=== PATIENT | female | born 1980 | race Caucasian/White ===

== ENCOUNTER 2016-03-09 07:10 | Emergency (ER) | payer OTHER ==
[~2016-03-09] VITALS: Ht 160 cm; Wt 45.0 kg
[2016-03-09 07:15] VITALS: Ht 160 cm; Wt 45.0 kg
[2016-03-09] MEDS ORDERED: NPH10OT RIGHT EAR (07:39)
[2016-03-09] MEDS ORDERED: AMOX1TAB10 PO (07:39)
--- NOTE | 2016-03-09 09:15 | ERD ---
DATE OF SERVICE: HISTORY OF PRESENT ILLNESS: The patient is a 36-year-old female coming in complaining of right ear pain x1 day. The patient describes it as sharp, stabbing pain. She states she has had a recent URI . She started having drainage and bleeding from her right ear. She has not used any medications fo r the pain. She has never had this before. Denies any fevers. PAST MEDICAL HISTORY: Denies medical problems. ALLERGIES: DENIES ALLERGIES TO MEDICATIONS. PAST SURGICAL HISTORY: Denies. SOCIAL HISTORY: Denies. REVIEW OF SYSTEMS: A 12-point review of systems was done. Refer to the HPI for positives, all othe r systems negative. PHYSICAL EXAMINATION VITAL SIGNS: Temperature is 99.2, pulse 89, blood pressure is 123/73, respiratory rate 16, O2 satur ation 99% on room air. Pain intensity is 6/10. GENERAL: The patient is well-appearing, well-nourished, no acute distress. HEART: Regular rate and rhythm. No murmurs, clicks, rubs or gallops. No S3 or S4. CHEST: Clear to auscultation bilaterally. There are no rales, wheezes or rhonchi. HEENT: Atraumatic. Conjunctivae are pink. Pupils equal, round, and reactive to light. There is no s cleral icterus. The patient does have erythema to the external ear canal with mild changes with eryt rajan behind the TM. No obvious perforation. Oropharynx clear. No nystagmus or photophobia. No mast oid tenderness. SKIN: There is no apparent rash or petechia. The skin is warm and dry. DIAGNOSIS: Right ear pain. MEDICAL DECISION MAKING: The patient has concerning signs for both otitis media and otitis externa. I will treat for both. I will put the patient on Cortisporin drops as had concern for ototo xicity. I recommended the patient to refrain from being in open water and recommended her to follow up with primary care. I have low suspicion for mastoiditis. DISCHARGE: The patient is discharged stable. The patient is given a prescription for Cortisporin a nd Augmentin. Told to follow up with primary care within 1 to 2 days for reevaluation. The patient was told if symptoms progress or worsen, to return to the ER. All other questions answered at time of discharge. Discharge summary given at the time of departure. The patient understood and compli ed with plan. Dictated By: GLORIA HAYS for JOSE R SALDIVAR/DENYS Conf#: [id number] DID#: [id number]
== END 2016-03-09 08:19 | disposition home or self-care (01) ==
LOC: FTE 07:10
DX: H92.01 Otalgia, right ear (principal)
CPT/HCPCS: 99283